=== PATIENT | female | born 1990 | race Caucasian/White ===

== ENCOUNTER 2019-08-03 08:00 | Outpatient (CLI) | payer BC | END 2019-08-03 23:59 | disposition home or self-care (01) | LOC: LAB.R 08:00 | PROVIDERS: ATTEND Internal Medicine | DX: J02.9 Acute pharyngitis, unspecified (principal) | CPT/HCPCS: 87070 ==

== ENCOUNTER 2020-06-06 16:47 | Outpatient (CLI) | payer OTHER ==
[2020-06-06 17:12] LABS: HGB - HEMOGLOBIN 13.3 g/dL (12.0-16.0); MEAN CORPUSCULAR HGB CONC 33.8 g/dL (32.0-36.0); MEAN CORPUSCULAR VOLUME 94.9 fL (81.0-99.0); MEAN PLATELET VOLUME 9.2 fL (7.9-10.8); RED BLOOD COUNT 4.15 10^6/uL (4.20-5.40); RED CELL DISTRIBUTION WIDTH 12.1 % (12.0-15.0); WHITE BLOOD COUNT 9.9 x10^3/uL (4.8-10.8)
== END 2020-06-06 16:48 | disposition home or self-care (01) ==
LOC: LAB 16:47
PROVIDERS: ATTEND Advanced Practice Midwife
DX: Z71.89 Other specified counseling (principal)
CPT/HCPCS: 36415; 84144; 84443; 85027

== ENCOUNTER 2020-11-08 16:41 | Outpatient (CLI) | payer OTHER ==
[2020-11-08 17:21] LABS: THYROID STIMULATING HORMONE 2.67 uIU/mL (0.34-5.60)
[2020-11-08 17:23] LABS: FREE T4 (FREE THYROXINE) 0.77 ng/dL (0.58-1.64)
== END 2020-11-08 16:42 | disposition home or self-care (01) ==
LOC: LAB 16:41
PROVIDERS: ATTEND Advanced Practice Midwife
DX: N91.2 Amenorrhea, unspecified (principal)
CPT/HCPCS: 36415; 84439; 84443

== ENCOUNTER 2020-11-14 16:29 | Outpatient (CLI) | payer OTHER ==
--- NOTE | 2020-11-15 15:02 | Ultrasound Report ---
PROCEDURE: Pelvic w/Transvaginal INDICATIONS: AMENORRHEA TECHNIQUE: Real-time scanning was performed of the pelvic organs, with image documentation. Additional endovagi nal scanning was necessary due to incomplete visualization of the adnexal and endometrial structures by transabdominal scanning. COMPARISON: None. FINDINGS: No pathologic free abdominal or pelvic fluid. Uterus: Uterus is normal in size at 6.9 x 3.3 x 4.5 cm. Homogeneous uterine echotexture. The endomet rium appears slightly heterogeneous and measures 8 mm in combined thickness. Ovaries: Right ovary measures 3.4 x 1.6 x 2.8 cm with ovarian volume of 8 mL. There greater than 12 follicles seen on the right. Left ovary measures 4.2 x 3.8 x 3.9 cm with ovarian volume of 33 mL. The re are also greater than 12 follicles identified on the left. There is a complicated cyst in the left ovary measuring 2.4 x 2.2 x 2.3 cm with imaging features most likely representing a hemorrhagic cyst . IMPRESSION: 1. Pelvic ultrasound without acute sonographic abnormalities. 2. Increased left ovarian volume with a possible 2.4 cm hemorrhagic cyst. Recommend follow-up pelvic ultrasound in 6-12 weeks to document stability versus resolution. Reviewed by: Shadi Izquierdo MD on 11/15/2020 3:01 PM PDT Approved by: Shadi Izquierdo MD on 11/15/2020 3:01 PM PDT Station ID: [id number]
== END 2020-11-14 16:30 | disposition home or self-care (01) ==
LOC: DI 16:29
PROVIDERS: ATTEND Advanced Practice Midwife
DX: N91.2 Amenorrhea, unspecified (principal)

== ENCOUNTER 2020-11-19 13:39 | Outpatient (CLI) | payer OTHER ==
[2020-11-19 14:27] LABS: ESTIMATED AVERAGE GLUCOSE 97 mg/dL (70-100)
== END 2020-11-19 13:40 | disposition home or self-care (01) ==
LOC: LAB 13:39
PROVIDERS: ATTEND Advanced Practice Midwife
DX: N91.2 Amenorrhea, unspecified (principal)
CPT/HCPCS: 36415; 83036

== ENCOUNTER 2021-01-15 19:25 | Outpatient (CLI) | payer OTHER ==
--- NOTE | 2021-01-16 17:01 | Ultrasound Report ---
PROCEDURE: Pelvic w/Transvaginal INDICATIONS: AMENORRHEA TECHNIQUE: Real-time scanning was performed of the pelvic organs, with image documentation. Additional endovagi nal scanning was necessary due to incomplete visualization of the adnexal and endometrial structures by transabdominal scanning. COMPARISON: None. FINDINGS: No pathologic free abdominal or pelvic fluid. Uterus: Uterus is normal in size at 6.3 x 2.5 x 3.5 cm. The endometrium measures 5.3 mm in combined thickness. Ovaries: Right ovary measures 4.4 x 1.5 x 3.8 cm, volume 12.9 cc. Left ovary measures 3.7 x 2.6 x 4. 1 cm, volume 20.2 cc. Prominent follicle is noted on the left. IMPRESSION: Unremarkable exam. Reviewed by: Kassidy Malik MD on 01/16/2021 5:00 PM PDT Approved by: Kassidy Malik MD on 01/16/2021 5:00 PM PDT Station ID: [id number]
== END 2021-01-15 19:26 | disposition home or self-care (01) ==
LOC: DI 19:25
PROVIDERS: ATTEND Advanced Practice Midwife
DX: N91.2 Amenorrhea, unspecified (principal)